=== PATIENT | female | born 1955 | race Caucasian/White ===

== ENCOUNTER 2021-08-12 13:04 | Outpatient (CLI) | payer MEDICARE | END 2021-08-12 13:05 | disposition home or self-care (01) | LOC: CSHWCC 13:04 | PROVIDERS: ATTEND Nurse Practitioner Family | DX: E11.622 Type 2 diabetes mellitus with other skin ulcer (principal); E03.9 Hypothyroidism, unspecified; E78.5 Hyperlipidemia, unspecified; F33.1 Major depressive disorder, recurrent, moderate; I10 Essential (primary) hypertension; I48.91 Unspecified atrial fibrillation; I82.4Y1 Acute embolism and thrombosis of unspecified deep veins of right proximal lower extremity; L98.493 Non-pressure chronic ulcer of skin of other sites with necrosis of muscle; N17.9 Acute kidney failure, unspecified; Z91.81 History of falling ==

== ENCOUNTER 2021-08-13 15:49 | Inpatient (IN) | payer MEDICARE ==
[2021-08-13 16:47] VITALS: BMI 25.7
[2021-08-13] MEDS ORDERED: Acetaminophen 325 MG TAB PO PRN (17:56)
[2021-08-13] MEDS ORDERED: cefTRIAXone\\ROCEPHIN 1 GM in Sodium Chloride 0.9% 100 ML IVPB SCH (18:30)
[2021-08-14 04:38] LABS: #Eosinphils 0.1 10x3/uL (0.0-0.5); #Monocytes 0.6 10x3/uL (0.0-1.1); #Neutrophils 7.1 10x3/uL (1.5-8.4); %Basophils 0.2 % (0.0-2.0); %Eosinophils 1.3 % (0.0-6.0); %Lymphocytes 25.7 % (18.0-47.0); %Monocytes 5.5 % (0.0-10.0); Hemoglobin 7.3 g/dL (12.0-15.5); Mean Corpuscular HGB CONC 31.1 g/dL (32.0-36.0); Mean Corpuscular Hemoglobin 26.7 pg (27.0-33.0); Mean Corpuscular Volume 86.1 fl (81.6-98.3); Mean Platelet Volume 9.9 fl (7.4-10.4); Platelet Count 329 10x3/uL (150-450); RBC Distribution Width 14.9 % (11.5-14.5); Red Blood Cell (RBC) Count 2.73 10x6/uL (3.90-5.03); White Blood Cell (WBC) Count 10.6 10x3/uL (3.5-10.5)
[2021-08-14 04:46] LABS: Anion Gap 16 mmol/L (10-20); BUN (Urea Nitrogen) 24 mg/dL (9.8-20.1); Calc. Creatinine Clearance 61 mL/min (70-130); Calcium 8.9 mg/dL (7.8-10.44); Carbon Dioxide 20 mmol/L (23-31); Chloride 103 mmol/L (98-107); Glucose 227 mg/dL (80-115); Potassium 3.9 mmol/L (3.5-5.1); Sodium 135 mmol/L (136-145)
[2021-08-14] MEDS ORDERED: Ondansetron ODT 4 MG TAB PO PRN (08:46)
[2021-08-14] MEDS ORDERED: Montelukast Sodium 10 mg Tablet PO SCH (09:00)
[2021-08-14] MEDS ORDERED: HCTZ PO SCH (09:00)
[2021-08-14] MEDS ORDERED: Alogliptin 6.25 MG TAB PO SCH (09:00)
[2021-08-14] MEDS ORDERED: BISOPROLOL FUMARATE PO SCH (09:00)
[2021-08-14] MEDS ORDERED: Levothyroxine Sodium 100 MCG TAB PO SCH ×2 (09:00→10:45)
[2021-08-14] MEDS ORDERED: Furosemide 20 MG TAB PO SCH (09:00)
[2021-08-14] MEDS ORDERED: PAROXETINE HCL 40 MG PO SCH (09:00)
[2021-08-14] MEDS ORDERED: Hydrochlorothiazide 25 MG TAB PO SCH ×2 (09:00)
[2021-08-14] MEDS ORDERED: Bisoprolol Fumarate 5 MG TAB PO SCH (09:00)
[2021-08-14 09:05] LABS: Lactic Acid 0.8 mmol/L (0.5-2.2)
[2021-08-14 09:22] LABS: Iron 11 ug/dL (50-170); Iron Binding Capacity, Total 214 mcg/dL (265-497)
[2021-08-14] MEDS ORDERED: HumaLOG 300 UNITS/3 ML VIAL SC PRN (10:02)
[2021-08-14] MEDS ORDERED: Dextrose 50% Abboject 50 ML SYRINGE SLOW IVP PRN (10:02)
[2021-08-14] MEDS ORDERED: Dextrose 5% in Water 1,000 ML IV PRN (10:02)
[2021-08-14] MEDS ORDERED: PARoxetine 20 MG TAB PO SCH (11:00)
[2021-08-14] MEDS ORDERED: metFORMIN 500 MG TAB PO SCH (17:00)
[2021-08-14 17:28] VITALS: BP 116/65; TEMP 98.4
[2021-08-14] MEDS ORDERED: Lantus 1000 UNITS/10 ML VIAL SC SCH (21:00)
[2021-08-14] MEDS ORDERED: Atorvastatin Calcium 40 MG TAB PO SCH (21:00)
[2021-08-15] MEDS ORDERED: glipiZIDE 5 MG TAB PO SCH (08:00)
[2021-08-15] MEDS ORDERED: PARoxetine 20 MG TAB PO SCH (09:00)
== END 2021-08-14 17:25 | disposition home or self-care (01) | DRG 314 ==
LOC: CSHTELE 15:49
PROVIDERS: ADMIT Internal Medicine; ATTEND Internal Medicine
PROC: 0HBDXZZ Excision of Right Lower Arm Skin, External Approach (ICD-10-PCS; principal; 2021-08-14)
DX: T80.1XXA Vascular complications following infusion, transfusion and therapeutic injection, initial encounter (principal); A41.9 Sepsis, unspecified organism; R65.20 Severe sepsis without septic shock; I82.621 Acute embolism and thrombosis of deep veins of right upper extremity; I42.9 Cardiomyopathy, unspecified; I48.91 Unspecified atrial fibrillation; I80.8 Phlebitis and thrombophlebitis of other sites; N18.30 Chronic kidney disease, stage 3 unspecified; E11.22 Type 2 diabetes mellitus with diabetic chronic kidney disease; E03.9 Hypothyroidism, unspecified; I12.9 Hypertensive chronic kidney disease with stage 1 through stage 4 chronic kidney disease, or unspecified chronic kidney disease; F41.9 Anxiety disorder, unspecified; F32.A Depression, unspecified; Z66 Do not resuscitate; S41.101A Unspecified open wound of right upper arm, initial encounter; Z79.891 Long term (current) use of opiate analgesic; Z79.84 Long term (current) use of oral hypoglycemic drugs; Z79.899 Other long term (current) drug therapy; Z79.4 Long term (current) use of insulin; Z88.8 Allergy status to other drugs, medicaments and biological substances; Z87.440 Personal history of urinary (tract) infections; Z90.49 Acquired absence of other specified parts of digestive tract
CPT/HCPCS: 36415; 36416; 80048; 82607; 82746; 83540; 83550; 83605; 85025; 85046; J0696; J1815; J3490

== ENCOUNTER 2021-10-05 09:48 | Outpatient (CLI) | payer MEDICARE | END 2021-10-05 09:49 | disposition home or self-care (01) | LOC: CSHWCC 09:48 | PROVIDERS: ATTEND Nurse Practitioner Family | DX: L98.493 Non-pressure chronic ulcer of skin of other sites with necrosis of muscle (principal) | CPT/HCPCS: 99212; G0463 ==